=== PATIENT | male | born 1995 | race Hispanic/Latino ===

== ENCOUNTER 2017-08-19 15:01 | Emergency (ER) | payer MEDICAID, SELFPAY ==
--- NOTE | 2017-08-19 15:30 | RAD ---
THREE VIEWS OF THE SOFT TISSUE NECK: History: History of swallowing a finger nail two weeks ago, now with pain with swallowing. FINDINGS: No radiopaque foreign body is evident. Prevertebral soft tissues are normal. No acute osseous abnorm ality is evident. Lung apices are clear. IMPRESSION: No radiopaque foreign body. POS: YOVANY
--- NOTE | 2017-08-19 15:35 | RAD ---
PA AND LATERAL OF THE CHEST: INDICATION: History of swallowing a fingernail 2 weeks ago now with pain and swelling. FINDINGS: Lungs are clear. Cardiomediastinal silhouette is normal. No acute osseous abnormality is evident. IMPRESSION: No acute abnormality. No radiopaque foreign body is demonstrated. POS: YOVANYH
== END 2017-08-19 15:40 | disposition home or self-care (01) ==
LOC: SCSER 15:01
DX: R09.89 Other specified symptoms and signs involving the circulatory and respiratory systems (principal); R07.0 Pain in throat
CPT/HCPCS: 70360; 71020